=== PATIENT | male | born 2005 | race Caucasian/White ===

== ENCOUNTER 2024-01-12 17:20 | Inpatient (IN) ==
--- NOTE | 2024-01-12 18:04 | Emergency Department Note ---
Impression & Plan Intentional overdose, Suicide attempt ED Provider Note NAME: HELLEN YEE AGE: 18 SEX: M : 2005 ARRIVES VIA: Ambulance INFORMANT: Patient ED PROVIDER(S): Soham Leroy DO CHIEF COMPLAINT: Suicide attempt HPI: Patient is a 18-year-old male with a past medical history of depression and suicide attempts who presents to the ER for an intentional overdose to kill himself. He took 1 g of Lamictal in combination with 180 mg of Concerta and around 300 mg of Viibryd. Patient denies any headache or change in vision. No chest pain or shortness of breath. He does admit to nausea and upset stomach with vomiting. No dysuria, urgency, or frequency. ADDITIONAL HISTORY OBTAINED: Per HPI Chronic Medical/Social Conditions Affecting Care: Per HPI PAST MEDICAL HISTORY:See Below PAST SURGICAL HISTORY:See Below FAMILY HISTORY:See Below SOCIAL HISTORY:See Below HOME MEDICATIONS:See Below ALLERGIES:See Below VITALS:See Below PHYSICAL EXAMINATION: GENERAL: Sitting up in bed, alert, vomiting and intermittently dry heaving EYE EXAM: normal conjunctiva. PERRL and EOM's grossly intact. OROPHARYNX: no exudate, no erythema, lips, buccal mucosa, and tongue normal and mucous membranes are moist NECK: supple, no nuchal rigidity, no adenopathy, non-tender LUNGS: Clear to auscultation. Normal chest wall mechanics HEART: no murmurs, S1 normal and S2 normal ABDOMEN: abdomen soft, non-tender, normo-active bowel sounds, no masses, no rebound or guarding. UPPER EXTREMITIES: upper extremities are grossly normal. LOWER EXTREMITIES: No pitting edema. NEURO EXAM: Normal sensorium, cranial nerves II-XII grossly intact, normal speech, no gross weakness of arms, no gross weakness of legs. MEDICAL DECISION MAKING: Patient is a 18-year-old male who presents ER following fall overdose to kill himself. IV was established and blood work was obtained. Labs show no significant leukocytosis or anemia. BMP along LFTs bilirubin and TSH was unremarkable. UA was clean. Tox was negative. Alcohol negative. COVID- negative. Patient was given Zofran and IV fluids. Vomiting stopped. Discussed case with [place] poison control and they recommended observation for 12+ hours until asymptomatic for concern for serotonergic symptoms. I discussed the case with the hospitalist and updated the patient for further evaluation management treatment. Consults/Care Managements Discussions: Per MDM Triage Nursing notes reviewed. Limited review of prior medical records performed Vital Signs: reviewed and remarkable for no significant abnormalities Differential diagnosis: Mood disorder, infection, hypoglycemia, electrolyte abnormalities, cardiac sources, intracerebral event, toxicologic, trauma, neurologic, as well as other pathologies. ER treatment provided: See below Diagnostics interpreted by me include EKG and cardiac monitoring as listed below: -Cardiac Monitoring: An order was placed for continuous cardiac monitoring. The monitor shows a rate of 90 with sinus rhythm. -ECG: Sinus rhythm rate 95 Normal axis No PVCs Incomplete right bundle QTc 429 -Laboratory studies:Interpreted by me as stated above in MDM and shown below. Imaging studies: Xrays: As interpreted by me:none CTs show: none Procedures:none Critical Care: None Past Med/Surg History Problem List (Updated 01/12/24 @ 21:31 by Soham Leroy DO) Suicide attempt (Acute) Intentional overdose (Acute) Medical History (Updated 01/12/24 @ 21:31 by Soham Leroy DO) ADHD Anxiety OCD (obsessive compulsive disorder) Depression Surgical History (Updated 01/12/24 @ 20:37 by Cally You DO) No significant past surgical history Family History (Updated 01/12/24 @ 20:37 by Cally You DO) Other Family history non-contributory Social History (Updated 01/12/24 @ 20:37 by Cally You DO) Smoking Status: Current some day smoker Hx Alcohol Use: Yes Hx Substance Use: Yes Feels Safe at Home: Yes Allergies Allergies Allergy/AdvReac Type Severity Reaction Status Date / Time No Known Allergies Allergy Unverified 02/21/23 01:03 Home Meds Home Medications Medication Instructions Recorded Confirmed cetirizine 10 mg tablet (Zyrtec) 10 mg PO DAILY PRN allergies 02/21/23 01/12/24 Concerta 18 mg PO DAILY 01/12/24 01/12/24 Lamictal 200 mg PO DAILY 01/12/24 01/12/24 Viibryd 30 mg PO DAILY 01/12/24 01/12/24 Results & Data (ED) Vital Signs Vital Signs - 24 hr 01/12/24 17:48 01/12/24 17:51 01/12/24 19:06 Temperature 36.6 C Temperature Source Oral Pulse Rate 100 H 88 Pulse Rate [Apical] 83 Respiratory Rate 20 18 Respiratory Effort / Characteristics Non-Labored Respiratory Depth Normal Respiratory Pattern Regular Blood Pressure 144/107 H Blood Pressure Mean 119 Pulse Oximetry 99 97 Oxygen Delivery Method Room Air Room Air Sepsis Recent Fever Within 48 Hours No Sepsis New/Unexplained Change in Mental Status No Sepsis Action Taken by Nursing No Action Required Laboratory Data 01/12/24 18:18 01/12/24 18:18 Lab Results 01/12/24 Range/Units 18:18 WBC 7.20 (4.8-10.8) K/ul RBC 5.33 (4.70-6.10) M/uL Hgb 15.6 (14.0-18.0) g/dl Hct 44.9 (42.0-52.0) % MCV 84.2 (80.0-100.0) fL MCH 29.3 (25.0-34.0) pg MCHC 34.7 (32.0-36.0) g/dL RDW Std Deviation 41.3 (36.4-46.3) fL RDW Coeff of Zoe 13.5 (11.5-14.5) % Plt Count 288 (130-400) K/uL MPV 8.2 L (9.4-12.4) fL Immature Gran % (Auto) 0.3 % Neut % (Auto) 73.0 % Lymph % (Auto) 16.3 % [place] % (Auto) 7.5 % Eos % (Auto) 2.1 % Baso % (Auto) 0.8 % Neut # (Auto) 5.26 (1.40-6.50) K/uL Lymph # (Auto) 1.17 L (1.20-3.40) K/uL [place] # (Auto) 0.54 (0.11-0.59) K/uL Eos # (Auto) 0.15 (0.00-0.50) K/uL Baso # (Auto) 0.06 (0.00-0.20) K/uL Immature Gran # (Auto) 0.02 (0.01-0.20) K/uL Sodium 141 (136-145) mmol/L Potassium 3.5 (3.5-5.1) mmol/L Chloride 105 (98-107) mmol/L Carbon Dioxide 25 (21-32) mmol/L Anion Gap 11 (3-11) BUN 8 (6-23) mg/dl Creatinine 0.88 (0.6-1.4) mg/dl Est Cr Clr Drug Dosing 130.6 ml/min eGFR 127.03 BUN/Creatinine Ratio 9.1 L (10-20) Glucose 85 (70-99(Fasting)) mg/dl Calcium 9.7 (8.6-10.3) mg/dl Total Bilirubin 1.0 (0.2-1.0) mg/dl AST 26 (13-39) U/L ALT 17 (7-52) U/L Alkaline Phosphatase 156 H (34-104) U/L Total Protein 7.4 (6.0-8.3) gm/dl Albumin 4.9 (3.4-5.0) gm/dl Globulin 2.5 (2.5-4.0) gm/dl Albumin/Globulin Ratio 2.0 (0.9-2) TSH 0.385 (0.300-4.500) uIu/ml Salicylates < 3.0 L (3.0-30) mg/dl Acetaminophen < 3 L (10-30) ug/ml Ethyl Alcohol mg/dL < 10.0 (<10.0) mg/dl SARS-CoV-2, RNA, NAAT NEGATIVE (NEGATIVE) Administered Medications Discontinued Medications Sodium Chloride (Nss) 1,000 mls @ 999 mls/hr IV .Q1H1M THOR Stop: 01/12/24 20:00 Last Infusion: 01/12/24 21:07 Dose: Infused Documented By: Admin: 01/12/24 19:36 Dose: 999 mls/hr Documented By: Infusion: 01/12/24 19:34 Dose: Infused Documented By: Admin: 01/12/24 18:33 Dose: 999 mls/hr Documented By: NEAL Ondansetron HCl (Ondansetron Inj 2 Mg/Ml 2 Ml Vial) 4 mg IV NOW STA Stop: 01/12/24 18:01 Last Admin: 01/12/24 18:33 Dose: 4 mg Documented By: NEAL Discharge Plan Visit Data Chief Complaint: Mental Health Evaluation Stated Complaint: ED Provider: Soham Leroy Discharge Problem: Intentional overdose, Suicide attempt Discharge Instructions Interventions: ED Discharge Assessment Last Done: 01/12/24 21:07 Discharge Problem: Intentional overdose Qualifiers: Encounter type: initial encounter Qualified Code(s): T50.902A - Poisoning by unspecified drugs, medicaments and biological substances, intentional self-harm, initial encounter
[2024-01-12] MEDS: SODIUM CHLORIDE 0.9% 1,000 ML IV SCH (18:33)
[2024-01-12] MEDS: ONDANSETRON INJ 2 MG/ML 2 ML VIAL IV STA (18:33)
[2024-01-12 18:40] LABS: Hematocrit (blood only) 44.9 % (42.0-52.0); Hemoglobin 15.6 g/dl (14.0-18.0); Lymphocytes % (auto) 16.3 %; Mean Corpuscular Hemoglobin 29.3 pg (25.0-34.0); Mean Corpuscular Hgb Conc 34.7 g/dL (32.0-36.0); Mean Corpuscular Volume 84.2 fL (80.0-100.0); Mean Platelet Volume 8.2 fL (9.4-12.4); Platelet Count 288 K/uL (130-400); RDW Coefficient of Variation 13.5 % (11.5-14.5); RDW Standard Deviation 41.3 fL (36.4-46.3); Red Blood Count 5.33 M/uL (4.70-6.10)
[2024-01-12 18:41] LABS: Basophils # (auto) 0.06 K/uL (0.00-0.20); Basophils % (auto) 0.8 %; Eosinophils # (auto) 0.15 K/uL (0.00-0.50); Eosinophils % (auto) 2.1 %; Immature Granulocytes # (auto) 0.02 K/uL (0.01-0.20); Immature Granulocytes % (auto) 0.3 %; Lymphocytes # (auto) 1.17 K/uL (1.20-3.40); Monocytes # (auto) 0.54 K/uL (0.11-0.59); Monocytes % (auto) 7.5 %; Neutrophils # (auto) 5.26 K/uL (1.40-6.50)
[2024-01-12 18:55] LABS: Albumin Level 4.9 gm/dl (3.4-5.0); BUN Creatinine Ratio 9.1 (10-20); Calcium 9.7 mg/dl (8.6-10.3); Creatinine Clr Calc Pharmacy 130.6 ml/min; Globulin 2.5 gm/dl (2.5-4.0); Potassium 3.5 mmol/L (3.5-5.1); Total Protein 7.4 gm/dl (6.0-8.3)
[2024-01-12 18:56] LABS: Acetaminophen < 3 ug/ml (10-30); Salicylate < 3.0 mg/dl (3.0-30)
[2024-01-12 19:07] LABS: Thyroid Stimulating Hormone 0.385 uIu/ml (0.300-4.500)
--- NOTE | 2024-01-12 19:36 | History & Physical Report ---
Date of Service January 12, 2024 Assessment & Plan (1) Intentional overdose: Plan: 18yo male with history of Depression/Anxiety/OCD presenting with intentional overdose - Lamictal, Concertaa and Viibrya. Poison control center was contacted - recommended to monitor patient for 24 hours. Vilazodone (Viibryd) overdose effects include drowsiness, vomiting, tachycardia and agitation as well as possible seizure and QRS prolongation (rare) Presently resting comfortably, NAD and no complaints. -Admit to medical with telemetry -Maintain 1:1 observation and suicide prevention measures -Psychiatry consultation appreciated -Ativan as needed for agitation -Zofran as needed for nausea Plan Depression/Anxiety/OCD -Will hold home medications for now given recent overdose F/E/N - Saline lock. Electroltyes WNL. Regular diet as needed Ppx - low risk for DVT Code - Full Dispo - Admit to medical with telemetry History of Present Illness Chief Complaint: intentional overdose Primary Care Provider: [facility] James Lewis is a 18yo male with history of Depression, OCD, Anxiety and ADHD presenting with intentional overdose. Around 15:45 patient took Lamictal x 1gm, Concerta x 300mg and Viibryd x 250mg in an attempt to kill himself. Patient with history of prior suicide attempt in June with pill ingestion as well. He does not admit to any particular event that triggered today's event. He follows with Reports some nausea otherwise no complaints. In the ER patient is afebrile, mildly hypertensive otherwise HD stable Er Course: Zofran NSS Allergies Allergy/AdvReac Type Severity Reaction Status Date / Time No Known Allergies Allergy Unverified 02/21/23 01:03 Home Medications Medication Instructions Recorded Confirmed Type cetirizine 10 mg tablet (Zyrtec) 10 mg PO DAILY PRN allergies 02/21/23 01/12/24 History Concerta 18 mg PO DAILY 01/12/24 01/12/24 History Lamictal 200 mg PO DAILY 01/12/24 01/12/24 History Viibryd 30 mg PO DAILY 01/12/24 01/12/24 History Past Med/Surg History Problem List (Updated 01/12/24 @ 21:31 by Soham Leroy DO) Suicide attempt (Acute) Intentional overdose (Acute) Medical History (Updated 01/12/24 @ 21:31 by Soham Leroy DO) ADHD Anxiety OCD (obsessive compulsive disorder) Depression Surgical History (Updated 01/12/24 @ 20:37 by Cally You DO) No significant past surgical history Family History (Updated 01/12/24 @ 20:37 by Cally You DO) Other Family history non-contributory Social History (Updated 01/12/24 @ 20:37 by Cally You DO) Smoking Status: Current some day smoker Hx Alcohol Use: Yes Hx Substance Use: Yes Feels Safe at Home: Yes Review of Systems Review of Systems: All systems reviewed & are unremarkable except as noted in HPI & below Physical Exam Physical Exam: General: patient resting comfortably, NAD, non-toxic in appearance, AA&O x 4 Skin: warm, dry, intact, no rashes or lesions HEENT: NC/AT, PERRL, EOMI, anicteric sclera, conjunctiva without injection, external ear normal to inspection and nontender, nares patent, moist mucus membranes, dentition intact, no oropharyngeal lesions, neck supple, trachea midline, no LAD, no thyromegaly, no JVD Heart: +S1/S2, regular, no m/r/g Lungs: equal air entry bilaterally, no rales/rhonchi/wheezes Abd: +BS, soft, NT/ND, no masses/organomegaly/ascites Ext: warm, 2+ pulses in UE/LE bilaterally, no clubbing/cyanosis or edema Neuro: nonfocal, patient AA&O x 4, speech intact, no facial droop, moving all extremities on command with equal strength 5/5 Results & Data Results & Data Vital Signs (Past 12 Hours) Vital Signs Temp Pulse Pulse Resp BP Pulse Ox O2 Del Method 01/12/24 19:06 83 18 97 Room Air 01/12/24 17:51 88 01/12/24 17:48 36.6 C 100 H 20 144/107 H 99 Room Air Laboratory Results Laboratory Results WBC 7.20 K/ul (4.8-10.8) 01/12/24 18:18 RBC 5.33 M/uL (4.70-6.10) 01/12/24 18:18 Hgb 15.6 g/dl (14.0-18.0) 01/12/24 18:18 Hct 44.9 % (42.0-52.0) 01/12/24 18:18 MCV 84.2 fL (80.0-100.0) 01/12/24 18:18 MCH 29.3 pg (25.0-34.0) 01/12/24 18:18 MCHC 34.7 g/dL (32.0-36.0) 01/12/24 18:18 RDW Std Deviation 41.3 fL (36.4-46.3) 01/12/24 18:18 RDW Coeff of Zoe 13.5 % (11.5-14.5) 01/12/24 18:18 Plt Count 288 K/uL (130-400) 01/12/24 18:18 MPV 8.2 fL (9.4-12.4) L 01/12/24 18:18 Immature Gran % (Auto) 0.3 % 01/12/24 18:18 Neut % (Auto) 73.0 % 01/12/24 18:18 Lymph % (Auto) 16.3 % 01/12/24 18:18 [place] % (Auto) 7.5 % 01/12/24 18:18 Eos % (Auto) 2.1 % 01/12/24 18:18 Baso % (Auto) 0.8 % 01/12/24 18:18 Neut # (Auto) 5.26 K/uL (1.40-6.50) 01/12/24 18:18 Lymph # (Auto) 1.17 K/uL (1.20-3.40) L 01/12/24 18:18 [place] # (Auto) 0.54 K/uL (0.11-0.59) 01/12/24 18:18 Eos # (Auto) 0.15 K/uL (0.00-0.50) 01/12/24 18:18 Baso # (Auto) 0.06 K/uL (0.00-0.20) 01/12/24 18:18 Immature Gran # (Auto) 0.02 K/uL (0.01-0.20) 01/12/24 18:18 Sodium 141 mmol/L (136-145) 01/12/24 18:18 Potassium 3.5 mmol/L (3.5-5.1) 01/12/24 18:18 Chloride 105 mmol/L (98-107) 01/12/24 18:18 Carbon Dioxide 25 mmol/L (21-32) 01/12/24 18:18 Anion Gap 11 (3-11) 01/12/24 18:18 BUN 8 mg/dl (6-23) 01/12/24 18:18 Creatinine 0.88 mg/dl (0.6-1.4) 01/12/24 18:18 Est Cr Clr Drug Dosing 130.6 ml/min 01/12/24 18:18 eGFR 127.03 01/12/24 18:18 BUN/Creatinine Ratio 9.1 (10-20) L 01/12/24 18:18 Glucose 85 mg/dl (70-99(Fasting)) 01/12/24 18:18 Calcium 9.7 mg/dl (8.6-10.3) 01/12/24 18:18 Total Bilirubin 1.0 mg/dl (0.2-1.0) 01/12/24 18:18 AST 26 U/L (13-39) 01/12/24 18:18 ALT 17 U/L (7-52) 01/12/24 18:18 Alkaline Phosphatase 156 U/L (34-104) H 01/12/24 18:18 Total Protein 7.4 gm/dl (6.0-8.3) 01/12/24 18:18 Albumin 4.9 gm/dl (3.4-5.0) 01/12/24 18:18 Globulin 2.5 gm/dl (2.5-4.0) 01/12/24 18:18 Albumin/Globulin Ratio 2.0 (0.9-2) 01/12/24 18:18 TSH 0.385 uIu/ml (0.300-4.500) 01/12/24 18:18 Salicylates < 3.0 mg/dl (3.0-30) L 01/12/24 18:18 Acetaminophen < 3 ug/ml (10-30) L 01/12/24 18:18 Ethyl Alcohol mg/dL < 10.0 mg/dl (<10.0) 01/12/24 18:18 SARS-CoV-2, RNA, NAAT NEGATIVE (NEGATIVE) 01/12/24 18:18 ECG Additional Comments: EKG with NSR at 95bpm, normal axis, EL=919, GJU=498, TNe=193, no acute ischemic changes PG Care Time/CCT Total # of Minutes Spent Total Time Spent with Patient: Total time spent is greater than 50% in coordination of care (as documented) at patient's floor/unit and/or counseling patient: Coding Level of Care Code 52615 INT INP/OBS CARE 2/MIN Diagnoses Intentional overdose T50.902A
[2024-01-12 20:50] LABS: Appearance Urine Clear (Clear); Bacteria Urine Automated None Seen (None Seen); Bilirubin Urine Negative (Negative); Blood Urine Negative (Negative); Cast Urine Automated 0-2 /lpf (0-2); Color Urine Yellow; Epithelial Cell Urine Auto 0-2 /hpf (0-2); Glucose Urine UA Negative (Negative); Ketones Urine 1+ (Negative); Leukocyte Esterase Urine Trace (Negative); Nitrite Urine Negative (Negative); Protein Urine Negative (Negative); RBC Urine Automated 0-2 /hpf (0-2); Specific Gravity Urine 1.012 (1.000-1.030); Urobilinogen Urine Negative (Negative); WBC Urine Automated 0-5 /hpf (0-5)
[2024-01-12 22:39] LABS: Amphetamines+Metham, Urine Neg (Neg); Barbiturates, Urine Neg (Neg); Benzodiazepine, Urine Neg (Neg); Cocaine, Urine Neg (Neg); Fentanyl, Urine Neg (Neg); MDMA (Ecstacy), Urine Neg (Neg); Marijuana, Urine Pos (Neg); Methadone, Urine Neg (Neg); Opiate, Urine Neg (Neg); Phencyclidine, Urine Neg (Neg)
[2024-01-12] MEDS: LORazepam 0.5 MG TAB PO PRN (22:45)
[2024-01-13] MEDS: NICOTINE 14 MG/24 HR PATCH TD STA (04:34)
--- NOTE | 2024-01-13 08:14 | Hospitalist Progress Note ---
Date of Service January 13, 2024 Assessment & Plan (1) Intentional overdose: Plan: 18yo male with history of Depression/Anxiety/OCD presenting with intentional overdose - Lamictal, Concertaa and Viibrya. Poison control center was contacted - recommended to monitor patient for 24 hours. Vilazodone (Viibryd) overdose effects include drowsiness, vomiting, tachycardia and agitation as well as possible seizure and QRS prolongation (rare) Medically cleared by poison control No acute EKG changes, Maintain 1:1 observation and suicide prevention measures Psychiatry consultation appreciated: continue to hold home psych medications at present, Ativan IV 1st line for agitation, Okay to use Haldol 5mg IM and Ativan 2mg IM given lack of QTc changes Zofran as needed for nausea Patient is cleared medically for psychiatric placement PATIENT IS 302 COMMITTED - NOT TO BE DISCHARGED OR ALLOWED TO LEAVE AMA Plan Depression/Anxiety/OCD -Will hold home medications for now given recent overdose F/E/N - Saline lock. Electroltyes WNL. Regular diet as needed Ppx - low risk for DVT Code - Full Dispo - Admit to medical with telemetry Admission and Anticipated Discharge Date Admission Date: January 12, 2024 Supervising Physician Co-Signing Physician Notes I personally examined the patient and verified davidson points of history and exam, discussed case, and agree with decision making and plan documented by Dr. Prince. Patient is a 18 y/o males with mental health history on admission for attempted by ingestion/poisoning of multiple prescribed medications including Lamictal, Viibryd, and Concerta. Patient was observed to have frag ments of pill in emesis on journey to emergency department by police. Patient's mother reports that he may have been triggered by social rejection. Patient has been cleared from monitoring by poison control. 2 ECGs were performed and there are no acute changes or QT prolongation. Patient remains agitated and frustrated of his inability to go outside and vape nicotine. Nicotine patch and lozenge are provided to patient. Patient was also accepting of lorazepam 1 mg IV dose in the ED due to agitation. At present, patient is medically cleared to proceed with psychiatric hospitalization. Subjective Patient seen and evaluated at bedside this morning. No acute events overnight. Patient here with intentional overdose. This is his 3rd suicide attempt. Took Lamictal, Concerta, and Viibryd. Very combative and resistant to hospitalization. Required sedation with ativan. Insistent on obtaining a nicotine vape, refusing alternate nicotine delivery methods. 302 complete in chart Review of Systems Review of Systems: reviewed, per HPI Physical Exam Physical Exam: Constitutional: obvious distress HEENT: NCAT, no conjunctival injection CV: clinically well perfused Resp: no increased work of breathing GI: nondistended MSK: no gross deformities appreciated Skin: warm, dry, no rash appreciated Neuro: alert, oriented, no focal neurologic deficit appreciated Results & Data Results & Data Vital Signs (Past 12 Hours) Vital Signs Pulse Pulse Resp BP BP Pulse Ox O2 Del Method 01/13/24 07:00 117/71 01/13/24 07:00 68 01/13/24 06:48 66 20 91 Room Air 01/13/24 06:00 70 19 121/69 95 Room Air 01/13/24 05:00 73 21 120/65 91 Room Air 01/13/24 04:09 75 17 125/64 91 Room Air 01/13/24 04:07 74 19 125/64 93 Room Air 01/13/24 03:30 96 H 21 166/111 H 92 Room Air 01/13/24 03:00 155/89 H 01/13/24 03:00 85 17 94 01/13/24 02:30 142/84 H 01/13/24 02:30 142/84 H 01/13/24 02:15 91 H 23 94 01/13/24 02:14 Room Air 01/13/24 02:03 96 H 17 95 01/13/24 02:00 113/85 01/13/24 02:00 113/85 01/13/24 02:00 113/85 01/13/24 02:00 97 H 20 113/85 95 Room Air 01/13/24 01:57 106 H 20 95 01/13/24 01:54 99 H 22 94 01/13/24 01:48 96 H 22 94 01/13/24 01:30 137/79 01/13/24 01:30 137/79 01/13/24 01:30 137/79 01/13/24 01:30 137/79 01/13/24 01:30 137/79 01/13/24 01:30 94 H 21 94 01/13/24 01:30 96 H 17 137/79 94 Room Air 01/13/24 01:00 91 H 13 01/13/24 00:53 90 01/13/24 00:51 112 H 16 01/13/24 00:30 168/87 H 01/13/24 00:30 168/87 H 01/13/24 00:18 90 22 01/13/24 00:03 91 H 16 01/13/24 00:00 142/90 H 01/13/24 00:00 142/90 H 01/13/24 00:00 85 17 142/90 H 95 Room Air 01/12/24 23:57 84 21 01/12/24 23:45 94 H 19 01/12/24 23:39 94 H 19 01/12/24 23:31 152/77 H 01/12/24 23:31 152/77 H 01/12/24 23:31 152/77 H 01/12/24 23:18 102 H 16 01/12/24 23:12 90 18 01/12/24 22:57 84 24 01/12/24 22:45 95 H 17 01/12/24 22:39 89 17 01/12/24 22:24 91 H 17 01/12/24 22:18 82 22 01/12/24 22:00 154/94 H 01/12/24 21:33 100 H 22 01/12/24 21:30 139/89 01/12/24 21:30 139/89 01/12/24 21:30 90 21 01/12/24 21:24 98 H 17 01/12/24 21:18 97 H 17 01/12/24 21:07 93 H 18 140/88 99 Room Air 01/12/24 21:00 97 H 18 144/90 H 99 Room Air 01/12/24 20:39 102 H 20 01/12/24 20:21 92 H 22 97 01/12/24 20:12 97 H 22 98 Resident Activity Tracking Resident Involvement: Resident Care Provided Care Provided: Adult Hospital Medicine (1) Intentional overdose Encounter type: initial encounter Qualified Code(s): T50.902A - Poisoning by unspecified drugs, medicaments and biological substances, intentional self-harm, initial encounter
[2024-01-13 08:33] LABS: Hematocrit (blood only) 40.8 % (42.0-52.0); Hemoglobin 13.8 g/dl (14.0-18.0); Mean Corpuscular Hemoglobin 29.2 pg (25.0-34.0); Mean Corpuscular Hgb Conc 33.8 g/dL (32.0-36.0); Mean Corpuscular Volume 86.3 fL (80.0-100.0); Mean Platelet Volume 8.3 fL (9.4-12.4); Platelet Count 276 K/uL (130-400); RDW Coefficient of Variation 13.6 % (11.5-14.5); RDW Standard Deviation 42.7 fL (36.4-46.3); Red Blood Count 4.73 M/uL (4.70-6.10)
[2024-01-13 08:48] LABS: Albumin Level 3.9 gm/dl (3.4-5.0); BUN Creatinine Ratio 7.1 (10-20); Bilirubin Direct 0.2 mg/dl (0-0.2); Bilirubin,Total 0.9 mg/dl (0.2-1.0); Calcium 8.9 mg/dl (8.6-10.3); Creatinine Clr Calc Pharmacy 116.1 ml/min; Potassium 4.1 mmol/L (3.5-5.1)
[2024-01-13] MEDS: NICOTINE 14 MG/24 HR PATCH TD SCH (10:05)
[2024-01-13] MEDS: LORazepam 2 MG/1 ML VIAL IV PRN (11:25)
--- NOTE | 2024-01-13 11:43 | Electrocardiogram Report ---
Test Reason : Blood Pressure : */* mmHG Vent. Rate : 95 BPM Atrial Rate : 95 BPM P-R Int : 158 ms QRS Dur : 104 ms QT Int : 342 ms P-R-T Axes : 66 73 64 degrees QTcB Int : 429 ms Normal sinus rhythm Incomplete right bundle branch block Borderline ECG No previous ECGs available Confirmed by Abel Martinez ([id number]) on 01/13/2024 11:43:07 AM Referred By: REFERRED SELF Confirmed By: Abel Martinez
--- NOTE | 2024-01-13 11:54 | Electrocardiogram Report ---
Test Reason : Blood Pressure : */* mmHG Vent. Rate : 71 BPM Atrial Rate : 71 BPM P-R Int : 172 ms QRS Dur : 106 ms QT Int : 376 ms P-R-T Axes : 65 68 63 degrees QTcB Int : 408 ms Normal sinus rhythm with sinus arrhythmia Normal ECG When compared with ECG of 12-Jan-2024 17:35, (unconfirmed) No significant change was found Confirmed by Abel Martinez ([id number]) on 01/13/2024 11:54:50 AM Referred By: REFERRED SELF Confirmed By: Abel Martinez
[2024-01-13] MEDS: NICOTINE POLACRILEX 2 MG GUM MT PRN (12:44)
--- NOTE | 2024-01-13 14:03 | Psychiatric Consultation ---
Date of Consultation January 13, 2024 Impression / Recommendations Impression This is a 18 yo m admitted medically following an intentional overdose suicide attempt. Diagnostically consistent with unspecified depressive disorder in the context of recent stressors including conflict with a friend/being excluded from a social event. Acute risk of self-harm remains elevated and high given suicide attempt requiring medical admission, major depressive symptoms, history of prior attempts, impulsivity, unwillingness to seek treatment, limited insight, substance use (vapes), agitation. Given elevated risk of harm to self they meet criteria for inpatient psychiatric care for diagnostic clarification, safety/stabilization, development of additional coping skills, medication management and disposition/safety planning once medically stable. Seems that he can struggle with behavioral regulation at baseline, suspect this is amplified in setting of excess dopamine from Concerta ingestion and possible nicotine withdrawal from frequent vape use (apparently has been declining options for nicotine replacement via patch and gum). The patient remains hospitalized on a completed 302 involuntary commitment, which if not extended, will on 01/18/2024 @ 0030. This patient must remain on safety precautions with a 1-on-1 and is unable to leave the hospital AMA. He is likely to meet 303 criteria if symptoms persist, and due to weekend and timing of 302 commitment expiration, decision to pursue 303 will have to be done by end of day on 01/14/2024 with hearing to occur on 01/15/2024 if determined necessary. Overall, I spent a total of 60 minutes with this case including review of chart records, review of labwork, review of EKG QTc, direct evaluation of the patient at bedside, counseling the patient, discussion of the patient with the Nurse and with the hospitalist provider, discussion with the psychiatric liason during clinical rounds, review of collateral historian information from the family and documentation in the electronic health record. (1) Suicide attempt: (2) Intentional overdose: Encounter type: initial encounter Qualified Code(s): T50.902A - Poisoning by unspecified drugs, medicaments and biological substances, intentional self-harm, initial encounter (3) Depression: (4) ADHD: (5) Anxiety: (6) OCD (obsessive compulsive disorder): (7) Vapes nicotine containing substance: (8) Emotional dysregulation: Plan -1-on-1 for risk of harm to self -Do not discharge or allow to leave AMA, on 302 commitment -Hold psych medications for now -Once medically cleared plan for psychiatric hospitalization once medically stable. -For behavioral emergency would use ativan given concerns for potential prolonged QTc with Viibryd as part of overdose attempt. However, given that most recent QTc was normal if necessary could consider use of: haldol 5mg IM and ativan 2mg IM. Psych History Identifying Data 18 yo man with hx of depression, anxiety, OCD, ADHD, emotional/behavioral dysreg ulation in context of anger at times, vape use, admitted medically following suicide attempt via polypharmacy overdose ingestion. Psychiatry consulted for risk assessment, disposition recommendations, [address] Chief Complaint "Are they the supervisions?". History of Present Illness James was brought the the hospital by police after they were contacted by a friend who reported concerns he may have attempted suicide. While in the police car to be seen at the local crisis center he asked to stop, had emesis and police observed pill fragments. Reportedly police may have also found a suicide note. Apparently he ingested a combination of Concerta, Lamictal and Viibyrd as a suicide attempt. Overnight he was intermittently angry and briefly eloped from the ED mental health area after being medically admitted to manage his overdose. He was placed on a 302 commitment. Security were required at his bedside at times during the night and he was intermittently upset with his mother because she would not bring him his vape pen. Today he reports frustration with camera monitoring in the ED and wonders if I am a general handling supervisor, as he had been discussing this with RNs prior to my arrival. Discussed that we would request that ED/security speak with him about policies regarding the camera. He was accepting of this though reported frustration with his 302 commitment. Frustrated with lack of ability to vape. He can't cite any stressors or reason for overdose "I don't know". States he feels "fine" about being alive, he will not expand on this. Collateral from psych liason's discussion with his mother overnight notable for possible rejection from being uninvited to a friend's Halloween democrat. 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 He denies access to guns. Has outpatient providers in [place] who he sees via telemedicine a psychiatrist (Dr. Kenneth Boland) and a therapist (Garrett). He's unsure when he last took Concerta, (PDMP shows no scripts ever filled in [place]), he thinks maybe his mom brought him a script recently from [place]. Denies any prior psychiatric hospitalizations. UDS positive for cannabis. He then becomes frustrated again speaking about his interpretation of voluntary and involuntary psychiatric length of stays from what he is reading about [place] mental health laws online. Attempted to discuss this and clarify his misunderstandings (confusion about 72 hour notice vs 302) to which he began to yell and interview was ended. Allergies Allergy/AdvReac Type Severity Reaction Status Date / Time No Known Allergies Allergy Unverified 02/21/23 01:03 Home Medications Medication Instructions Recorded Confirmed Type cetirizine 10 mg tablet (Zyrtec) 10 mg PO DAILY PRN allergies 02/21/23 01/12/24 History Concerta 18 mg PO DAILY 01/12/24 01/12/24 History Lamictal 200 mg PO DAILY 01/12/24 01/12/24 History Viibryd 30 mg PO DAILY 01/12/24 01/12/24 History Patient History Medical History (Updated 01/13/24 @ 13:46 by Tina Johnson MD) ADHD Anxiety OCD (obsessive compulsive disorder) Surgical History (Updated 01/12/24 @ 20:37 by Cally You DO) No significant past surgical history Family History (Updated 01/12/24 @ 20:37 by Cally You DO) Other Family history non-contributory Social History (Updated 01/12/24 @ 20:37 by Cally You DO) Smoking Status: Current some day smoker Hx Alcohol Use: No Hx Substance Use: No Communication Ability: Effective Beliefs That Will Affect Care: None Current Living Situation: Alone Feels Safe at Home: Yes Assistive Devices: None Physical Exam Psychiatric: Orientation: alert and oriented x 3 Apperance: appropriately dressed Eye Contact: good eye contact (intense) Motor Behavior: + psychomotor agitation Speech: + loud speech; + abnormal rate/rhythm/volume of speech Affect: + irritable affect and + angry affect Mood: + depressed mood, + irritable mood and + angry mood Thought Process: + perseveration Thought Content: + preoccupation and reality based without delusions Suicidal Thoughts: denies suicidal thoughts (but ambivalent about being alive and s/p significant overdose ) Homicidal Thoughts: denies homicidal thoughts Hallucinations: no auditory hallucinations and no visual hallucinations Cognition: attention grossly intact and language grossly intact Estimated Intelligence: consistent with education level Insight: + limited insight Judgment: + limited judgement Vital Signs (Past 24 Hours): Last Vital Signs Temp 36.6 C 01/12/24 17:48 Pulse 98 H 01/13/24 12:00 Resp 18 01/13/24 12:00 BP 122/95 01/13/24 12:00 Pulse Ox 94 01/13/24 10:06 O2 Del Method Room Air 01/13/24 10:06 Results & Data (PSY) Medications Administered Lorazepam (Lorazepam 2 Mg/1 Ml Vial) 1 mg IV Q2H PRN PRN Reason: Anxiety/Agitation Stop: 02/12/24 00:41 Last Admin: 01/13/24 11:25 Dose: 1 mg Documented By: JORGE Miscellaneous (Remove Nicoderm Patch) 1 each N/A DAILY@0859 [facility] Stop: 02/12/24 08:58 Last Admin: 01/13/24 10:05 Dose: Not Given Documented By: EJFFRY Nicotine (Nicotine 14 Mg/24 Hr Patch) 1 patch TD QAM [facility] Stop: 02/12/24 08:59 Last Admin: 01/13/24 10:05 Dose: Not Given Documented By: JEFFRY Nicotine Polacrilex (Nicotine Polacrilex 2 Mg Gum) 1 piece MT Q2H PRN PRN Reason: nicotine withdrawal Stop: 02/11/24 22:35 Last Admin: 01/13/24 12:44 Dose: 1 piece Documented By: JORGE Coding Level of Care Code 98064 IN/OBS CONSULT LVL 4,60M Diagnoses Suicide attempt T14.91XA Intentional overdose T50.902A Encounter type: initial encounter Depression F32.A ADHD F90.9 Anxiety F41.9 OCD (obsessive compulsive disorder) F42.9 Vapes nicotine containing substance Z72.0 Emotional dysregulation R45.89
[2024-01-13] MEDS ORDERED: LORazepam 2 MG/1 ML VIAL IM PRN (16:58)
--- NOTE | 2024-01-14 00:06 | Communication Note ---
Date of Service: January 14, 2024 Notified by nursing that patient becoming increasingly agitated and requesting that his door be closed. He is requesting to see a copy of the hospital policy regarding patient rights and open/closed door policy. Printed copy of hospital policy provided to the patient. Briefly reviewed with him at bedside (staple removed). Verbiage of the policy does not clearly discern if patient's door may be open or closed. At this time given patient's agitated state, ongoing 302 with suicide precautions and presence of 1:1 sitter it is my opinion that for patient safety as well as safety of staff and care team that patient's door should remain partially open. We will attempt to dim hallway lights and limit sound outside of patient's room to promote rest. Explained above to patient - he strongly disagrees and still wishes to have his door closed. -Will continue to monitor -Haldol and Ativan IM available for agitation competitive with care
[2024-01-14] MEDS: HALOPERIDOL LACTATE 5 MG/ML 1 ML VIAL IM PRN (00:07)
[2024-01-14] MEDS: ONDANSETRON INJ 2 MG/ML 2 ML VIAL IV PRN (07:46)
--- NOTE | 2024-01-14 13:32 | Hospitalist Progress Note ---
Date of Service January 14, 2024 Assessment & Plan (1) Intentional overdose: Plan: 18yo male with history of Depression/Anxiety/OCD presenting with intentional overdose - Lamictal, Concertaa and Viibrya. Poison control center was contacted - recommended to monitor patient for 24 hours. Vilazodone (Viibryd) overdose effects include drowsiness, vomiting, tachycardia and agitation as well as possible seizure and QRS prolongation (rare) Medically cleared by poison control No acute EKG changes, Maintain 1:1 observation and suicide prevention measures Psychiatry consultation appreciated: continue to hold home psych medications at present, Ativan IV 1st line for agitation, Okay to use Haldol 5mg IM and Ativan 2mg IM given lack of QTc changes Zofran as needed for nausea Patient is cleared medically for psychiatric placement PATIENT IS 302 COMMITTED - NOT TO BE DISCHARGED OR ALLOWED TO LEAVE AMA Plan Depression/Anxiety/OCD -Will hold home medications for now given recent overdose F/E/N - Saline lock. Electroltyes WNL. Regular diet as needed Ppx - low risk for DVT Code - Full Dispo - Admit to medical with telemetry Admission and Anticipated Discharge Date Admission Date: January 12, 2024 Subjective Patient seen and evaluated at bedside this morning. No acute events overnight. Patient much more relaxed this morning. States he has no acute needs. Working towards placement with inpatient psychiatric facility. Review of Systems Review of Systems: reviewed, per HPI Physical Exam Physical Exam: Constitutional: obvious distress HEENT: NCAT, no conjunctival injection CV: clinically well perfused Resp: no increased work of breathing GI: nondistended MSK: no gross deformities appreciated Skin: warm, dry, no rash appreciated Neuro: alert, oriented, no focal neurologic deficit appreciated Results & Data Results & Data Vital Signs (Past 12 Hours) Vital Signs Temp Pulse Pulse Resp BP Pulse Ox O2 Del Method 01/14/24 11:10 36.4 C L 82 16 156/93 H 97 Room Air 01/14/24 07:29 36.4 C L 95 H 16 156/109 H 97 Room Air 01/14/24 05:43 68 Resident Activity Tracking Resident Involvement: Resident Care Provided Care Provided: Adult Hospital Medicine (1) Intentional overdose Encounter type: initial encounter Qualified Code(s): T50.902A - Poisoning by unspecified drugs, medicaments and biological substances, intentional self-harm, initial encounter
--- NOTE | 2024-01-14 13:48 | Psychiatric Progress Note ---
Date of Service January 14, 2024 Impression / Recommendations Impression This is a 18 yo m admitted medically following an intentional overdose suicide attempt. Diagnostically consistent with unspecified depressive disorder in the context of recent stressors including conflict with a friend/being excluded from a social event. Acute risk of self-harm remains elevated and high given suicide attempt requiring medical admission, major depressive symptoms, history of prior attempts, impulsivity, unwillingness to seek treatment, limited insight, substance use (vapes), agitation. Given elevated risk of harm to self they meet criteria for inpatient psychiatric care for diagnostic clarification, safety/stabilization, development of additional coping skills, medication management and disposition/safety planning once medically stable. Seems that he can struggle with behavioral regulation at baseline, suspect this is amplified in setting of excess dopamine from Concerta ingestion and possible nicotine withdrawal from frequent vape use. A: Ongoing episodes of agitation with emotional and behavioral dysregulation overnight requiring IM haldol. This morning reports improvement in mood though remains anxious about being isolated from family with inpatient psychiatric treatment. 303 commitment hearing held, 303 commitment granted. Plan for inpatient psychiatric admission to the [facility]. Ongoing concern for high acute risk of self-harm given prior suicide attempts, suicide letter noting history of depression and low self-worth, impulsivity, high emotional and behavioral reactivity and co-occurring psychiatric conditions and substance use (vapes nicotine, cannabis, alcohol). The patient remains hospitalized on a completed 303 involuntary commitment. This patient must remain on safety precautions with a 1-on-1 and is unable to leave the hospital AMA. Overall, I spent a total of 75 minutes with this case including review of chart records, review of labwork, direct evaluation of the patient at bedside, counseling the patient, discussion of the patient with the Nurse and with the hospitalist provider, discussion with the psychiatric liason during clinical rounds, review of collateral historian information from the family, completion o f 303 paperwork and participation in 303 commitment hearing and documentation in the electronic health record. (1) Suicide attempt: (2) Intentional overdose: (3) Depression: (4) ADHD: (5) Anxiety: (6) OCD (obsessive compulsive disorder): (7) Vapes nicotine containing substance: (8) Emotional dysregulation: Plan -Medical stable with plan for transfer to [facility] for inpatient psychiatric treatment -1-on-1 for risk of harm to self -Do not discharge or allow to leave AMA, on 303 commitment -Continue to hold his scheduled prior to admission psych medications -For behavioral emergency would use ativan given concerns for potential prolonged QTc with Viibryd as part of overdose attempt. However, given that most recent QTc was normal if necessary could consider use of: haldol 5mg IM and ativan 2mg IM. Interval History Identifying Information 18 yo man with hx of depression, anxiety, OCD, ADHD, emotional/behavioral dysregulation in context of anger at times, vape use, admitted medically following suicide attempt via polypharmacy overdose ingestion. Psychiatry consulted for risk assessment, disposition recommendations, [address] Chief Complaint "It was impulsive". Subjective Subjective Patient was seen & assessed and interval progress reviewed. Overnight he required IM haldol and was intermittently agitated requiring security at times. Today he reports his mood is "better" which he credits to time, feeling calmer and now utilizing the nicotine gum. His mother is with him and supportive. Explained process of 303 commitment given that his 302 commitment will on Thursday night and hearings cannot be held over the weekend. He was accepted to the [facility] pending 303 commitment so that their providers would have the opportunity to assess and treat him. Process discussed with he and his mother and psych liason provided him with his 303 rights and information on public health technologist. I encouraged him to reach out to [facility] and to discuss his wishes (to be discharged). Reviewed my concerns about ongoing high acute risk due to seriousness of attempt with emotional and behavioral dysregulation. Participated in 303 commitment at 1:30pm via phone call. James and his mother also participated. Reviewed during hearing concerns for ongoing risk of self- harm especially given suicide note found by police in which he describes feeling "this was inevitable" and "the last few months since then have been the toughest of my life, but since then I've only made it worse [...] I needed to be put down". Physical Exam Psychiatric Orientation: alert and oriented x 3 Apperance: appropriately dressed Eye Contact: good eye contact Motor Behavior: no abnormal motor movements Speech: normal rate/rhythm/volume of speech Affect: + anxious affect Mood: + depressed mood and + anxious mood Thought Process: goal directed thought process Thought Content: reality based without delusions Suicidal Thoughts: denies suicidal thoughts (but s/p serious attempt) Homicidal Thoughts: denies homicidal thoughts Hallucinations: no auditory hallucinations and no visual hallucinations Cognition: attention grossly intact and language grossly intact Estimated Intelligence: consistent with education level Insight: + limited insight Judgment: + limited judgement Vital Signs (Past 24 Hours) Last Vital Signs Temp 36.4 C L 01/14/24 11:10 Pulse 82 01/14/24 11:10 Resp 16 01/14/24 11:10 BP 156/93 H 01/14/24 11:10 Pulse Ox 97 01/14/24 11:10 O2 Del Method Room Air 01/14/24 11:10 Results & Data ([facility]) Current Inpatient Medications Current Inpatient Medications: Current Inpatient Medications Haloperidol Lactate (Haloperidol Lactate 5 Mg/Ml 1 Ml Vial) 5 mg IM Q6H PRN PRN Reason: agression/extreme agitation Stop: 02/12/24 16:57 Last Admin: 01/14/24 00:07 Dose: 5 mg Lorazepam (Lorazepam 2 Mg/1 Ml Vial) 1 mg IV Q2H PRN PRN Reason: Anxiety/Agitation Stop: 02/12/24 00:41 Last Admin: 01/13/24 11:25 Dose: 1 mg Lorazepam (Lorazepam 2 Mg/1 Ml Vial) 2 mg IM ONCE PRN PRN Reason: EXTREME AGITATION Stop: 02/12/24 16:57 Miscellaneous (Remove Nicoderm Patch) 1 each N/A DAILY@0859 [facility] Stop: 02/12/24 08:58 Last Admin: 01/14/24 08:05 Dose: Not Given Nicotine (Nicotine 14 Mg/24 Hr Patch) 1 patch TD QAM [facility] Stop: 02/12/24 08:59 Last Admin: 01/14/24 13:15 Dose: 1 patch Nicotine Polacrilex (Nicotine Polacrilex 2 Mg Gum) 1 piece MT Q2H PRN PRN Reason: nicotine withdrawal Stop: 02/11/24 22:35 Last Admin: 01/14/24 11:20 Dose: 1 piece Nicotine Polacrilex (Nicotine Polacrilex 2 Mg Gum) 1 piece MT Q1H PRN PRN Reason: requests nicotine Stop: 02/13/24 07:29 Ondansetron HCl (Ondansetron Inj 2 Mg/Ml 2 Ml Vial) 4 mg IV Q6H PRN PRN Reason: Nausea Stop: 02/11/24 21:06 Last Admin: 10/31/24 07:46 Dose: 4 mg (2) Intentional overdose Encounter type: initial encounter Qualified Code(s): T50.902A - Poisoning by unspecified drugs, medicaments and biological substances, intentional self-harm, initial encounter
[2024-01-14] MEDS: NICOTINE POLACRILEX 2 MG GUM MT PRN (14:11)
--- NOTE | 2024-01-14 16:52 | Discharge Summary ---
Date of Service January 14, 2024 Admission HPI Per Admitting Provider James Lewis is a 18yo male with history of Depression, OCD, Anxiety and ADHD presenting with intentional overdose. Around 15:45 patient took Lamictal x 1gm, Concerta x 300mg and Viibryd x 250mg in an attempt to kill himself. Patient with history of prior suicide attempt in June with pill ingestion as well. He does not admit to any particular event that triggered today's event. He follows with Reports some nausea otherwise no complaints. In the ER patient is afebrile, mildly hypertensive otherwise HD stable Er Course: Zofran NSS Admission Exam Per Admitting Provider General: patient resting comfortably, NAD, non-toxic in appearance, AA&O x 4 Skin: warm, dry, intact, no rashes or lesions HEENT: NC/AT, PERRL, EOMI, anicteric sclera, conjunctiva without injection, external ear normal to inspection and nontender, nares patent, moist mucus membranes, dentition intact, no oropharyngeal lesions, neck supple, trachea midline, no LAD, no thyromegaly, no JVD Heart: +S1/S2, regular, no m/r/g Lungs: equal air entry bilaterally, no rales/rhonchi/wheezes Abd: +BS, soft, NT/ND, no masses/organomegaly/ascites Ext: warm, 2+ pulses in UE/LE bilaterally, no clubbing/cyanosis or edema Neuro: nonfocal, patient AA&O x 4, speech intact, no facial droop, moving all extremities on command with equal strength 5/5 Principal Diagnosis Intentional overdose Discharge Exam Constitutional: calm, cooperative HEENT: NCAT, no conjunctival injection CV: clinically well perfused Resp: no increased work of breathing GI: nondistended MSK: no gross deformities appreciated Skin: warm, dry, no rash appreciated Neuro: alert, oriented, no focal neurologic deficit appreciated Discharge Data Allergies Allergy/AdvReac Type Severity Reaction Status Date / Time No Known Allergies Allergy Unverified 02/21/23 01:03 Consultations 01/12/24 18:59 ED Decision to Admit Stat 01/12/24 19:36 Consult Psychiatry Routine 01/12/24 23:27 Consult Behavioral Health Liaison Routine Hospital Course (1) Intentional overdose: 18yo male with history of Depression/Anxiety/OCD presenting with intentional overdose - Lamictal, Concertaa and Viibrya. Poison control center was contacted - recommended to monitor patient for 24 hours. Vilazodone (Viibryd) overdose effects include drowsiness, vomiting, tachycardia and agitation as well as possible seizure and QRS prolongation (rare) Medically cleared by poison control No acute EKG changes, Maintain 1:1 observation and suicide prevention measures Psychiatry consultation appreciated: continue to hold home psych medications at present, Ativan IV 1st line for agitation, Okay to use Haldol 5mg IM and Ativan 2mg IM given lack of QTc changes Zofran as needed for nausea Patient is cleared medically for psychiatric placement PATIENT IS 302 COMMITTED - NOT TO BE DISCHARGED OR ALLOWED TO LEAVE AMA Plan Depression/Anxiety/OCD -Will hold home medications for now given recent overdose Total Time Total Time Spent Total Time Spent (In Minutes): see attending documentation Discharge Plan Discharge Items Patient Disposition: Transfer Behavioral Health Fac Reason For Visit: INTENTIONAL OVERDOSE Discharge Diagnosis: Intentional overdose Activity: As commented below Activity Comment: as instructed by the Non-emergency contact: Primary Care Provider and Psychiatrist Call non-emergency contact if: your symptoms worsen Follow-up/Referrals: [facility] [Primary Care Provider] - Diet: Regular Addtl Attending Provider Instructions: You were admitted to the hospital for an intentional overdose. You were treated with medications to help calm agitation and anxiety. While you were here you were seen by psychiatry who felt that it was not safe for you to return back to school or home. It was determined that you would be best served by completing inpatient psychiatric treatment to decrease the risk that you would harm yourself. Thank you for allowing us to participate in your care. Pending Studies at Discharge: No Stand-Alone Forms: My [facility] Skilled Items DNR: No Medications and DC Order Prescriptions: Continued cetirizine [Zyrtec] 10 mg Tablet 10 mg PO DAILY PRN (Reason: allergies) Rx Instructions: Takes in spring Discontinued Concerta 18 mg 18 mg PO DAILY Lamictal 200 mg 200 mg PO DAILY Viibryd 30 mg 30 mg PO DAILY Discharge Orders: Discharge Order (Routine); Ordered 01/14/24 Ordered By: Efrain Phillip/Other Patient Handouts: Your Mental Health Safety Plan, Suicide Warning What To Do, ED Overdose Intentional Adult Admission Data Admit Date/Time: 10/29/24 19:36 Attending Provider: Gloria Matson Admit Provider: Cally You Primary Care Provider: [facility] Other Providers: Tina Johnson; Shmuel Velasco; Chelsey Perla; Diana Moran; Michele Jain; Sarah Fam; Cally You Supervising Physician Co-Signing Physician Notes I personally examined the patient and verified davidson points of history and exam, discussed case, and agree with decision making and plan documented by Dr. Prince. Patient is a 18 y/o male with mental health history on admission for attempted by ingestion/poisoning of multiple prescribed medications including Lamictal, Viibryd, and Concerta. Patient was observed to have fragments of pill in emesis on journey to emergency department by police. Patient's mother reports that he may have been triggered by social rejection. Patient has been cleared from monitoring by poison control. ECGs were performed and there are no acute changes or QT prolongation. Patient medically cleared and now under 303, he is discharged to proceed with psychiatric hospitalization at the [facility]. Resident Activity Tracking Resident Involvement: Resident Care Provided Care Provided: Adult Hospital Medicine
[2024-01-15 15:17] LABS: Marijuana Quant, GCMS Urine 1510 ng/mL (<5)
== END 2024-01-14 17:29 | DRG 918 ==
LOC: ED 17:20 → SUATTDRO 19:36 → EDINP 19:36 → 2W 01-13 19:26